=== PATIENT | male | born 1995 | race Caucasian/White ===

== ENCOUNTER 2022-10-17 19:03 | Emergency (ER) | payer OTHER, SELFPAY ==
[2022-10-17 19:20] VITALS: BP 142/98; PULSE 66; RESP 18; TEMP 36.8; O2SAT 99; BMI 25.1
[2022-10-17 19:39] VITALS: BP 119/92; PULSE 69; RESP 12; TEMP 36.7; O2SAT 99
[2022-10-17 20:12] VITALS: BP 131/92; PULSE 71; RESP 18; O2SAT 98
--- NOTE | 2022-10-17 21:37 | ED_ITS ---
HPI - General Adult General Chief complaint: Wound/Laceration Stated complaint: STUCK FINGER WITH EPI PEN ON ACCIDENT Time Seen by Provider: 10/17/22 19:43 Source: patient and EMS Mode of arrival: EMS Limitations: no limitations History of Present Illness HPI narrative: 27-year-old male presents with injury to the right thumb. Patient was attempting to administer an EpiPen to his significant other. Accidentally stuck himself in the thumb. The medication did enter his body. He had palpitations, nausea and lightheadedness. The symptoms at the time were severe. They have now resolved. He now only complains of right thumb pain. The pain is [id number]. There is associated bruising. The pain does not radiate. It is worsened with palpation. There is no numbness or tingling. Related Data Allergies Allergy/AdvReac Type Severity Reaction Status Date / Time No Known Allergies Allergy Verified 10/17/22 19:24 Review of Systems Review of Systems: CONSTITUTIONAL: Denies weight loss, fever and chills. HEENT: Denies changes in vision and hearing. RESPIRATORY: Denies SOB and cough. CV: + palpitations no CP. GI: Denies abdominal pain, nausea, vomiting and diarrhea. : Denies dysuria and urinary frequency. MSK: Denies myalgia and joint pain. SKIN: Denies rash and pruritus. NEUROLOGICAL: Denies headache and syncope. PSYCHIATRIC: Denies recent changes in mood. Denies anxiety and depression. All other ROS are negative unless in HPI PMFSH Social History Social History Alcohol intake: never Smoked in Last 30 Days: No Use of substances other than those prescribed or required for medical reasons: No Advance Directives: No Advance Directives Information Provided: Yes Physical Exam ED Vital Signs: Vital Signs - 24 hr 10/17/22 19:20 10/17/22 19:39 10/17/22 20:12 Temperature 98.2 F 98.1 F Pulse Rate 66 69 71 Respiratory Rate 18 12 18 Blood Pressure 142/98 H 119/92 H 131/92 H Pulse Oximetry 99 99 98 Oxygen Delivery Method Room Air Room Air Room Air BMI result Body Mass Index 25.1 GEN: Well developed, no acute distress, alert, oriented HEENT: Normocephalic, atraumatic, normal external ears, nose appears normal, no oropharyngeal edema or exudates Eyes: Normal to appearance Neck: Supple, no lymphadenopathy Respiratory: Talks in complete sentences, no respiratory distress, clear to auscultation bilaterally Cardiovascular: Regular rate and rhythm, no murmurs rubs or gallops Abdomen: Soft, nontender, nondistended, no guarding, no rebound Back: No CVA tenderness Extremities: No clubbing cyanosis or edema, ecchymoses and tenderness of right volar thumb Neurologic: No focal neurologic deficits, cranial nerves 2-12 intact, strength is 5/5 bilaterally Skin: No rash Course Course Course Narrative: Upon my evaluation, patient is doing well. Ecchymoses of right thumb. He is neurovascular intact. There is no numbness or tingling. He has normal capillary refill. There is no evidence of ischemia. His systemic side effects of since resolved. Patient can be discharged at this time. Medical Decision Making Medical Decision Making [facility] Narrative: 27-year-old male presents with right thumb needlestick. Patient also likely had exposure to EpiPen medication. Did have some systemic effects. He is currently asymptomatic. Examination is benign. No further workup indicated. Differential Diagnosis Differential Diagnoses: The differential diagnosis associated with the presentation includes (Fingerstick, medication reaction) Independent Historian Clinical information obtained from an independent historian. History obtained from or confirmed by: Parent and EMS Prescription Management I considered prescription management with: Pain Medication Discharge Plan Discharge Clinical Impression: Needle stick, hypodermic, accidental Patient Disposition: Home, Self-Care Instructions: Needle Stick Injuries (ED) Referrals: [facility] [Provider Group] [facility] [Provider Group] Stand Alone Forms: Work/School Release Interventions: ED Discharge Assessment Last Done: 10/17/22 20:09 Discharge Date/Time: 10/17/22 20:12
== END 2022-10-17 20:12 | disposition home or self-care (01) ==
PROVIDERS: Emergency Provider Emergency Medicine
DX: Z77.21 Contact with and (suspected) exposure to potentially hazardous body fluids (principal)
CPT/HCPCS: 99283; 99284